=== PATIENT | female | born 1940 | race Caucasian/White ===

== ENCOUNTER → 2016-11-06 | Outpatient (CLI) | payer MEDICARE, BC ==
--- NOTE | 2016-11-06 21:58 | HKNOTE ---
DATE OF SERVICE: 11/06/2016 The patient has severe degenerative osteoarthritis of both knees. The right knee is slightly worse than the left knee. She has gotten cortisone injections from time to time, which have helped her a great deal. The last injection was given on 07/31/2016, which is almost ____ ago. PHYSICAL EXAMINATION: VITAL SIGNS: Height 5 feet 3, weight 114 pounds, blood pressure 130/60, temperature 97.8. Clinical ly, both knees have clinical signs of degenerative osteoarthritis. The patient declined to get new x-rays today. MANAGEMENT: Under sterile conditions, given injection of 2 mL of Kenalog and 6 mL of 2% lidocaine i nto each knee. She will be seen again as necessary. Dictated By: BHAKTI CHAHAL/JARED Conf#: [id number] DID#: [id number]
== END | disposition home or self-care (01) ==
LOC: HKI 15:01
DX: M17.0 Bilateral primary osteoarthritis of knee (principal)
CPT/HCPCS: 20610; G0463; J3301

== ENCOUNTER → 2018-02-17 | Outpatient (CLI) | END | disposition home or self-care (01) ==

== ENCOUNTER → 2018-03-10 | Outpatient (CLI) | END | disposition home or self-care (01) ==

== ENCOUNTER → 2018-08-08 | Outpatient (CLI) | END | disposition home or self-care (01) ==